=== PATIENT | female | born 1995 | race Caucasian/White ===

== ENCOUNTER 2016-12-20 21:02 | Outpatient (CLI) | payer MEDICAID ==
[~2016-12-20] VITALS: Ht 160 cm; Wt 81.8 kg
[~2016-12-20 21:02] MED LIST: IBUP-1222 PO; OXYC-302 PO; PREN1TAB60 PO
== END 2016-12-20 22:43 | disposition home or self-care (01) ==
LOC: LDOP 21:02
PROVIDERS: ATTEND Obstetrics & Gynecology
DX: O12.03 Gestational edema, third trimester (principal); O26.893 Other specified pregnancy related conditions, third trimester; R51 Headache; R42 Dizziness and giddiness; R03.0 Elevated blood-pressure reading, without diagnosis of hypertension; Z3A.34 34 weeks gestation of pregnancy
CPT/HCPCS: 59025; 81003; 99211; G0463

== ENCOUNTER 2017-01-03 21:02 | Outpatient (CLI) | payer MEDICAID ==
[~2017-01-03] VITALS: Ht 160 cm; Wt 81.8 kg
== END 2017-01-03 21:07 | disposition home or self-care (01) ==
LOC: LDOP 21:02
PROVIDERS: ATTEND Obstetrics & Gynecology
DX: O26.893 Other specified pregnancy related conditions, third trimester (principal); R10.9 Unspecified abdominal pain; R10.2 Pelvic and perineal pain; R06.02 Shortness of breath; Z3A.36 36 weeks gestation of pregnancy
CPT/HCPCS: 59025; 99211; G0463

== ENCOUNTER 2017-01-24 17:59 | Outpatient (CLI) | payer MEDICAID ==
[~2017-01-24] VITALS: Ht 160 cm; Wt 87.7 kg
[2017-01-24 18:07] VITALS: BP 120/82
== END 2017-01-24 19:27 | disposition home or self-care (01) ==
LOC: LDOP 17:59
PROVIDERS: ATTEND Obstetrics & Gynecology
DX: O42.92 Full-term premature rupture of membranes, unspecified as to length of time between rupture and onset of labor (principal); O26.893 Other specified pregnancy related conditions, third trimester; R51 Headache; Z3A.39 39 weeks gestation of pregnancy
CPT/HCPCS: 59025; 89060; 99211; G0463; Q0114

== ENCOUNTER 2017-01-29 17:50 | Outpatient (CLI) | payer MEDICAID ==
[~2017-01-29] VITALS: Ht 160 cm; Wt 88.2 kg
[2017-01-29 18:06] VITALS: BP 120/67
[2017-01-29 20:08] LABS: PATH.CAST-FLAG NOT PRESENT; SPERM-FLAG NOT PRESENT; SRC-FLAG NOT PRESENT; XTAL-FLAG NOT PRESENT; YLC-FLAG NOT PRESENT
== END 2017-01-29 21:15 | disposition home or self-care (01) ==
LOC: LDOP 17:50
PROVIDERS: ATTEND Obstetrics & Gynecology
DX: O26.893 Other specified pregnancy related conditions, third trimester (principal); R10.9 Unspecified abdominal pain; O62.9 Abnormality of forces of labor, unspecified; Z3A.39 39 weeks gestation of pregnancy
CPT/HCPCS: 59025; 81001; 87086; 99201; 99211; G0463

== ENCOUNTER 2017-01-30 09:39 | Inpatient (IN) | payer MEDICAID ==
[~2017-01-30] VITALS: Ht 160 cm; Wt 88.5 kg
[2017-01-30] MEDS ORDERED: OXYTOCIN 30U/ 0.9% NaCL 500ML 500 ML ONE (09:42)
[2017-01-30] MEDS ORDERED: OXYTOCIN 30U/ 0.9% NaCL 500ML 500 ML IV ONE (09:45)
[2017-01-30] MEDS ORDERED: LACTATED RINGERS 1,000 ML IV SCH (09:45)
[2017-01-30] MEDS ORDERED: LIDOCAINE 1%, 20ML ONE (09:47)
[2017-01-30] MEDS ORDERED: MISOPROSTOL 200 MCG TABLET ONE (09:48)
[2017-01-30] MEDS ORDERED: NEWBORN KIT ONE (09:48)
[2017-01-30] MEDS ORDERED: FENTANYL PF 100 MCG/2ML IV PRN (10:00)
[2017-01-30] MEDS ORDERED: CLINDAMYCIN PMX 900MG/50ML 50 ML IV ONE (10:00)
[2017-01-30] MEDS ORDERED: FENTANYL PF 100 MCG/2ML IVPush PRN (10:00)
[2017-01-30] MEDS: PLEASE ENTER HEIGHT AND WEIGHT MC SCH ×2 (10:00→18:00)
[2017-01-30] MEDS: OXYTOCIN 30U/ 0.9% NaCL 500ML 500 ML IV SCH ×2 (10:33→20:33)
[2017-01-30] MEDS ORDERED: OXYcodone/APAP 10/325MG TABLET ONE (10:37)
[2017-01-30] MEDS ORDERED: IBUPROFEN 600 MG TABLET ONE (10:38)
[2017-01-30] MEDS ORDERED: OXYcodone/APAP 5/325MG TABLET ONE (10:39)
[2017-01-30] MEDS: OXYcodone/APAP 5/325MG TABLET PO PRN ×3 (10:40→21:43)
[2017-01-30] MEDS: IBUPROFEN 600 MG TABLET PO PRN ×2 (10:40→17:01)
[2017-01-30] MEDS ORDERED: MISOPROSTOL 200 MCG TABLET PR PRN (11:00)
[2017-01-30] MEDS ORDERED: CALCIUM CARBONATE 500 MG TAB.CHEW PO PRN (11:00)
[2017-01-30 13:03] VITALS: BP 100/70
[2017-01-30 15:56] VITALS: BP 118/70
[2017-01-30 20:15] VITALS: BP 126/78
[2017-01-30] MEDS: DOCUSATE 100 MG CAPSULE PO PRN (21:43)
[2017-01-31 00:50] VITALS: BP 120/70
[2017-01-31] MEDS: PLEASE ENTER HEIGHT AND WEIGHT MC SCH (02:00)
[2017-01-31] MEDS: IBUPROFEN 600 MG TABLET PO PRN ×4 (04:22→22:28)
[2017-01-31] MEDS: OXYcodone/APAP 5/325MG TABLET PO PRN ×6 (04:22→21:00)
[2017-01-31 04:30] VITALS: BP 122/68
[2017-01-31] MEDS: OXYTOCIN 30U/ 0.9% NaCL 500ML 500 ML IV SCH ×2 (06:33→16:33)
[2017-01-31 07:35] VITALS: BP 114/64
[2017-01-31] MEDS: DOCUSATE 100 MG CAPSULE PO PRN ×2 (08:27→21:00)
[2017-01-31] MEDS: PRENATAL VIT/IRON/FA 1 EACH TABLET PO SCH (08:27)
[2017-01-31 21:00] VITALS: BP 121/72
[2017-02-01] MEDS: OXYcodone/APAP 5/325MG TABLET PO PRN ×2 (01:23→08:58)
[2017-02-01] MEDS: OXYTOCIN 30U/ 0.9% NaCL 500ML 500 ML IV SCH (02:33)
[2017-02-01] MEDS: PRENATAL VIT/IRON/FA 1 EACH TABLET PO SCH (07:32)
[2017-02-01] MEDS: DOCUSATE 100 MG CAPSULE PO PRN (07:32)
[2017-02-01] MEDS: IBUPROFEN 600 MG TABLET PO PRN (07:32)
[2017-02-01 07:44] VITALS: BP 123/69
[2017-02-01] MEDS ORDERED: IBUP-1222 PO (09:48)
[2017-02-01] MEDS ORDERED: OXYC-302 PO (09:48)
== END 2017-02-01 11:17 | disposition home or self-care (01) | DRG 775 ==
LOC: LDOP 09:39 → LDIP 10:05 → 2NW 12:39
PROVIDERS: ADMIT Obstetrics & Gynecology; ATTEND Obstetrics & Gynecology
PROC: 10E0XZZ Delivery of Products of Conception, External Approach (ICD-10-PCS; principal; 2017-01-30)
PROC: 10907ZC Drainage of Amniotic Fluid, Therapeutic from Products of Conception, Via Natural or Artificial Opening (ICD-10-PCS; 2017-01-30)
DX: O99.824 Streptococcus B carrier state complicating childbirth (principal); O34.211 Maternal care for low transverse scar from previous cesarean delivery; O62.3 Precipitate labor; O69.81X0 Labor and delivery complicated by cord around neck, without compression, not applicable or unspecified; Z37.0 Single live birth; Z3A.39 39 weeks gestation of pregnancy; Z88.0 Allergy status to penicillin
CPT/HCPCS: 36415; 82803; 85025; 86850; 86900; J2590; J7120